=== PATIENT | male | born 1950 | race Two or more races ===

== ENCOUNTER 2024-04-04 10:03 | Emergency (ER) | payer OTHER ==
[~2024-04-04] VITALS: Ht 175.3 cm; Wt 77.1 kg
[2024-04-04] MEDS ORDERED: TOPROL XL50 M1 (10:32)
[2024-04-04] MEDS ORDERED: JANUMET 50-1,01 EACH (10:32)
[2024-04-04] MEDS ORDERED: GLIPIZIDE XL10 MG (10:32)
[2024-04-04] MEDS ORDERED: LANTUS SOL100 UNIT/1 (10:32)
[2024-04-04] MEDS ORDERED: AMLODIPINE-OLM1 EAC3 (10:33)
[2024-04-04] MEDS ORDERED: LODOSYN25 MG (10:33)
[2024-04-04] MEDS ORDERED: PLAVIX75 MG (10:33)
[2024-04-04] MEDS ORDERED: ZESTRIL2.5 MG (10:33)
[2024-04-04] MEDS ORDERED: LIPITOR40 MG (10:33)
[2024-04-04] MEDS ORDERED: LYRICA100 MG (10:33)
[2024-04-04] MEDS ORDERED: REMINYL8 MG (10:34)
[2024-04-04] MEDS ORDERED: GRALISE600 MG (10:35)
[2024-04-04 13:22] LABS: HEMATOCRIT 42.1 % (39.0-48.0); HEMOGLOBIN 14.5 g/dL (13-16.00); MEAN CELL VOLUME 85.8 fL (80.0-100.00); MEAN CORPUSCULAR HEMOGLOBIN 29.6 pg (27.00-32.0); MEAN CORPUSCULAR HGB CONC 34.5 g/dl (32.0-36.0); PLATELET COUNT 304 K/uL (150-450)
[2024-04-04 13:59] LABS: ALBUMIN 3.7 gm/dL (3.4-5.0); BILIRUBIN TOTAL 1.32 mg/dL (0.3-1.2); CALCIUM 9.1 mg/dL (8.5-10.1); CREATININE SERUM 1.51 mg/dL (0.70-1.30); GFR 45.65; GLOBULINA 4.9 G/DL (2.4-3.5); POTASSIUM 3.6 mEq/L (3.5-5.1); TOTAL PROTEIN 8.6 gm/dL (6.4-8.2)
== END 2024-04-04 15:10 | disposition home or self-care (01) ==
LOC: ER 10:05
PROVIDERS: General Practice
DX: R53.81 Other malaise (principal); R53.1 Weakness; M48.061 Spinal stenosis, lumbar region without neurogenic claudication; I10 Essential (primary) hypertension; E11.9 Type 2 diabetes mellitus without complications; Z79.4 Long term (current) use of insulin; Z88.0 Allergy status to penicillin; Z88.6 Allergy status to analgesic agent; Z91.013 Allergy to seafood

== ENCOUNTER 2024-06-01 13:13 | Inpatient (IN) | payer OTHER ==
[~2024-06-01] VITALS: Ht 177.8 cm; Wt 81.6 kg
[~2024-06-01 13:13] MED LIST: AMLODIPINE-OLM1 EAC3; GLIPIZIDE XL10 MG; GRALISE600 MG; JANUMET 50-1,01 EACH; LANTUS SOL100 UNIT/1; LIPITOR40 MG; LODOSYN25 MG; LYRICA100 MG; PLAVIX75 MG; REMINYL8 MG; TOPROL XL50 M1; ZESTRIL2.5 MG
[2024-06-01] MEDS ORDERED: ENALAPRILAT DIHYDRATE 2.5 MG/2 ML VIAL IV STA (15:27)
[2024-06-01 15:41] LABS: HEMATOCRIT 43.7 % (39.0-48.0); MEAN CELL VOLUME 85.3 fL (80.0-100.00); MEAN CORPUSCULAR HEMOGLOBIN 29.3 pg (27.00-32.0); MEAN CORPUSCULAR HGB CONC 34.3 g/dl (32.0-36.0); PLATELET COUNT 291 K/uL (150-450); RED BLOOD COUNT 5.12 M/uL (4.00-6.00); RED CELL DISTRIBUTION WIDTH 13.6 % (11.5-14.5)
[2024-06-01] MEDS ORDERED: ENALAPRILAT DIHYDRATE 1.25 MG/ML VIAL IV ONE (16:00)
[2024-06-01 16:26] LABS: ALBUMIN 3.8 gm/dL (3.4-5.0); BILIRUBIN TOTAL 1.42 mg/dL (0.3-1.2); CALCIUM 9.7 mg/dL (8.5-10.1); CREATININE SERUM 1.54 mg/dL (0.70-1.30); GFR 44.5; GLOBULINA 4.9 G/DL (2.4-3.5); POTASSIUM 3.71 mEq/L (3.5-5.1); TOTAL PROTEIN 8.7 gm/dL (6.4-8.2)
[2024-06-01] MEDS ORDERED: INSULIN REGULAR, HUMAN 1,000 UNIT/10 ML UNITS SUBCUTANEO STA (16:43)
[2024-06-01] MEDS ORDERED: INSULIN REGULAR, HUMAN 1,000 UNIT/10 ML UNITS IV STA (16:44)
[2024-06-01] MEDS ORDERED: 0.9 % SODIUM CHLORIDE 1,000 ML IV ONE (17:45)
[2024-06-01] MEDS ORDERED: NIFEDIPINE 10 MG CAPSULE PO SCH (18:45)
[2024-06-01] MEDS ORDERED: NIFEDIPINE 10 MG CAPSULE PO ONE (18:49)
[2024-06-01] MEDS ORDERED: INSULIN REGULAR, HUMAN 1,000 UNIT/10 ML UNITS SUBCUTANEO ONE (19:00)
[2024-06-01] MEDS ORDERED: INSULIN LISPRO 1,000 UNIT/10 ML UNITS SUBCUTANEO PRN (22:00)
[2024-06-01] MEDS ORDERED: DEXTROSE 50 % IN WATER 0.5 G/ML DISP.SYRIN IV PRN (22:00)
[2024-06-01] MEDS ORDERED: 0.9 % SODIUM CHLORIDE 1,000 ML IV SCH (22:00)
[2024-06-01] MEDS ORDERED: ACETAMINOPHEN 500 MG GEL..CAP PO PRN (22:00)
[2024-06-01] MEDS ORDERED: ONDANSETRON HCL 4 MG in 0.9 % SODIUM CHLORIDE 50 ML IV PRN (22:00)
[2024-06-01 23:58] VITALS: BP 151/72; O2SAT 95
[2024-06-02 01:31] LABS: INR 1.07; PARTIAL THROMBOPLASTIN TIME 24.3 SECONDS (22.0-34.0); PROTHROMBIN TIME 11.6 SECONDS (9.0-11.5)
[2024-06-02 02:00] LABS: PH,URINE 5.5 (5.0-8.0); URINE APPEARANCE Clear; URINE BILIRRUBIN Negative (NEGATIVE); URINE BLOOD Negative; URINE COLOR Yellow; URINE KETONE 15 (NEGATIVE); URINE LEUKOCYTE Negative; URINE NITRATE Negative; URINE PROTEIN Negative (NEGATIVE); URINE UROBILINOGEN 0.2 E.U./dl
[2024-06-02 02:03] LABS: URINE BACTERIA 16.3 uL (0.0-1933); URINE EPITHELIAL CELLS 2.6 uL (0.0-38.8)
[2024-06-02 02:11] LABS: URINE CAST 1.37 uL (0.0-1.40); URINE GLUCOSE >=1000 MG/DL (NEGATIVE); URINE RBC 0.4 uL (0.0-20.8); URINE WBC 0.9 uL (0.0-23.2)
[2024-06-02 08:00] VITALS: BP 149/74; O2SAT 95
[2024-06-02 08:17] LABS: PHOSPHOROUS 2.5 mg/dL (2.5-4.9); TSH 0.709 uIU/mL (0.358-3.74)
[2024-06-02] MEDS ORDERED: METOPROLOL SUCCINATE 50 MG TAB.SR.24H PO SCH (09:00)
[2024-06-02] MEDS ORDERED: ATORVASTATIN CALCIUM 40 MG TABLET PO SCH (09:00)
[2024-06-02] MEDS ORDERED: ENOXAPARIN SODIUM 40 MG/0.4 ML SYRINGE SUBCUTANEO SCH (09:00)
[2024-06-02] MEDS ORDERED: FAMOTIDINE/PF 20 MG in 0.9 % SODIUM CHLORIDE 8 ML IV PUSH SCH (09:00)
[2024-06-02] MEDS ORDERED: LISINOPRIL 2.5 MG TABLET PO SCH (09:00)
[2024-06-02] MEDS ORDERED: levoFLOXacin IN DEXTROSE 5 % 100 ML IV SCH (09:00)
[2024-06-02] MEDS ORDERED: PATIENTS OWN MEDICATION (MEDICAMENTO EN PISO) PO SCH (09:00)
[2024-06-02] MEDS ORDERED: AMLODIPINE BESYLATE 10 MG TABLET PO SCH (09:00)
[2024-06-02] MEDS ORDERED: INSULIN NPH HUMAN ISOPHANE 1,000 UNITS/10 ML UNITS SUBCUTANEO STA (12:38)
[2024-06-02 15:42] VITALS: BP 116/71; O2SAT 95
[2024-06-02] MEDS ORDERED: NIFEDIPINE 30 MG TAB.SA.OSM PO SCH (17:00)
[2024-06-02] MEDS ORDERED: CARBIDOPA/LEVODOPA 25/100 UDTAB PO NR (18:30)
[2024-06-02] MEDS ORDERED: INSULIN GLARGINE,HUM.REC.ANLOG 1,000 UNITS/10 ML UNITS SUBCUTANEO SCH (21:00)
[2024-06-03 01:20] VITALS: BP 144/73; O2SAT 93
[2024-06-03 06:44] LABS: HEMATOCRIT 39.8 % (39.0-48.0); HEMOGLOBIN 13.8 g/dL (13-16.00); MEAN CELL VOLUME 84.1 fL (80.0-100.00); MEAN CORPUSCULAR HEMOGLOBIN 29.2 pg (27.00-32.0); MEAN CORPUSCULAR HGB CONC 34.8 g/dl (32.0-36.0); PLATELET COUNT 267 K/uL (150-450); RED BLOOD COUNT 4.73 M/uL (4.00-6.00); RED CELL DISTRIBUTION WIDTH 13.7 % (11.5-14.5)
[2024-06-03 07:40] LABS: ALBUMIN 3.2 gm/dL (3.4-5.0); BILIRUBIN TOTAL 1.53 mg/dL (0.3-1.2); CALCIUM 8.8 mg/dL (8.5-10.1); CREATININE SERUM 1.07 mg/dL (0.70-1.30); GFR 67.74; MAGNESIUM 1.6 mg/dL (1.8-2.4); PHOSPHOROUS 2.5 mg/dL (2.5-4.9); POTASSIUM 3.76 mEq/L (3.5-5.1); TOTAL PROTEIN 7.2 gm/dL (6.4-8.2)
[2024-06-03] MEDS ORDERED: CARBIDOPA/LEVODOPA 25/100 UDTAB PO SCH ×2 (09:00)
[2024-06-03 11:34] VITALS: BP 196/95; O2SAT 97
[2024-06-03 11:36] VITALS: BP 127/72; O2SAT 96
[2024-06-03 16:24] VITALS: BP 123/69; O2SAT 95
[2024-06-03] MEDS ORDERED: ATORVASTATIN CALCIUM 40 MG TABLET PO SCH (17:00)
[2024-06-03] MEDS ORDERED: MAGNESIUM SULFATE 1,000 MG in 0.9 % SODIUM CHLORIDE 50 ML IV ONE (20:45)
[2024-06-03] MEDS ORDERED: MAGNESIUM SULFATE 50% 1,000 MG/2 ML VIAL ONE (22:05)
[2024-06-04 00:28] VITALS: BP 134/74; O2SAT 98
[2024-06-04 08:00] VITALS: BP 183/89; O2SAT 98
[2024-06-04] MEDS ORDERED: INSULIN LISPRO 1,000 UNIT/10 ML UNITS SUBCUTANEO SCH (08:00)
[2024-06-04 18:22] VITALS: BP 154/74; O2SAT 97
[2024-06-04 20:37] LABS: URINE APPEARANCE Clear; URINE BILIRRUBIN Negative (NEGATIVE); URINE BLOOD Negative; URINE COLOR Yellow; URINE KETONE Trace (NEGATIVE); URINE LEUKOCYTE Negative; URINE NITRATE Negative; URINE PROTEIN Negative (NEGATIVE)
[2024-06-04 20:40] LABS: URINE BACTERIA 26.4 uL (0.0-1933)
[2024-06-04 20:42] LABS: URINE EPITHELIAL CELLS 0.6 uL (0.0-38.8); URINE GLUCOSE >=1000 MG/DL (NEGATIVE); URINE RBC 1.6 uL (0.0-20.8); URINE WBC 0.9 uL (0.0-23.2)
[2024-06-04] MEDS ORDERED: MAGNESIUM SULFATE 1,000 MG in 0.9 % SODIUM CHLORIDE 50 ML IV ONE (23:00)
[2024-06-05] MEDS ORDERED: MAGNESIUM SULFATE 50% 1,000 MG/2 ML VIAL ONE (00:28)
[2024-06-05 00:35] VITALS: BP 148/79; O2SAT 98
[2024-06-05 07:20] LABS: CALCIUM 8.7 mg/dL (8.5-10.1); CREATININE SERUM 1.1 mg/dL (0.70-1.30); GFR 65.62; MAGNESIUM 1.8 mg/dL (1.8-2.4); PHOSPHOROUS 3.3 mg/dL (2.5-4.9); POTASSIUM 3.37 mEq/L (3.5-5.1)
[2024-06-05 08:00] VITALS: BP 170/74; O2SAT 98
[2024-06-05] MEDS ORDERED: POTASSIUM BICARBONATE/CIT AC 25 MEQ TABLET.EFF PO SCH (13:00)
[2024-06-05] MEDS ORDERED: POTASSIUM CHLORIDE IN WATER 40 MEQ/100 ML PIGGYBAG IV NR (17:15)
[2024-06-05 23:52] VITALS: BP 129/78; O2SAT 98
[2024-06-06 07:07] LABS: ALBUMIN 3.4 gm/dL (3.4-5.0); CALCIUM 9.2 mg/dL (8.5-10.1); CREATININE SERUM 1.27 mg/dL (0.70-1.30); GFR 55.59; PHOSPHOROUS 3.4 mg/dL (2.5-4.9); POTASSIUM 3.88 mEq/L (3.5-5.1)
[2024-06-06 07:58] VITALS: BP 190/90; O2SAT 95
[2024-06-06] MEDS ORDERED: INSULIN LISPRO 1,000 UNIT/10 ML UNITS SUBCUTANEO SCH (08:00)
[2024-06-06 14:00] VITALS: BP 154/85
[2024-06-06] MEDS ORDERED: CARBIDOPA-LEVO1 EA10 PO (17:48)
[2024-06-06] MEDS ORDERED: LISINOPRIL2.5 MG PO (17:51)
[2024-06-06] MEDS ORDERED: NIFEDIPINE ER30 M1 PO (17:52)
[2024-06-06] MEDS ORDERED: INSULIN GLARGINE,HUM.REC.ANLOG 1,000 UNITS/10 ML UNITS SUBCUTANEO SCH (21:00)
[2024-06-07] MEDS ORDERED: LEVOFLOXACIN750 MG PO (19:33)
== END 2024-06-06 18:02 | disposition home or self-care (01) | DRG 683 ==
LOC: ER 13:14 → SURG 22:30 → SEC-K 22:30 → SURG 06-02 02:34
PROVIDERS: General Practice; Internal Medicine; Internal Medicine Infectious Disease; ADMIT Internal Medicine; ATTEND Internal Medicine
DX: N17.8 Other acute kidney failure (principal); N39.0 Urinary tract infection, site not specified; E86.0 Dehydration; M48.07 Spinal stenosis, lumbosacral region; I73.9 Peripheral vascular disease, unspecified; E11.65 Type 2 diabetes mellitus with hyperglycemia; Z79.4 Long term (current) use of insulin; E87.6 Hypokalemia; G20.A1 Parkinson's disease without dyskinesia, without mention of fluctuations